=== PATIENT | female | born 1965 | race Caucasian/White ===

== ENCOUNTER 2020-04-07 20:26 | Emergency (ER) | payer MEDICAID, OTHER, SELFPAY ==
[2020-04-07 20:30] VITALS: BP 189/95; PULSE 98; RESP 20; TEMP 36.7; O2SAT 98
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
--- NOTE | 2020-04-07 21:01 | PC.NURSE ---
CALL PLACED TO [facility] FOR REPORT AND TRANSFER
[2020-04-07 21:20] VITALS: BP 151/100; PULSE 95; O2SAT 99
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
== END 2020-04-07 21:53 | disposition short-term general hospital (02) ==
PROVIDERS: Emergency Provider Emergency Medicine
DX: T76.21XA Adult sexual abuse, suspected, initial encounter (principal); S21.012A Laceration without foreign body of left breast, initial encounter; Y04.0XXA Assault by unarmed brawl or fight, initial encounter
CPT/HCPCS: 99285

== ENCOUNTER 2020-04-07 22:29 | Emergency (ER) | payer MEDICAID, OTHER, SELFPAY ==
--- NOTE | ~2020-04-07 | CT_ITS ---
EXAMINATION: CT brain wo con DATE: 04/08/2020 00:00 INDICATION: Head injury TECHNIQUE: Computed tomography (CT) of the head was performed without intravenous contrast. The dose- length product was 605.33 mGy-cm. The mA was adjusted according to patient size. Iterative reconstruc tion technique was employed. COMPARISON: CT dated 11/23/2006 FINDINGS: No acute intracranial hemorrhage, infarction, mass or mass effect. No ventriculomegaly or m idline shift. Normal iverson-white differentiation. There are surgical changes of the maxillary sinuses anteriorly. There is mucoperiosteal reaction in the maxillary sinuses consistent with chronic sinusit is. There is complete opacification the right maxillary and to a lesser degree in the right ethmoid s inuses. IMPRESSION: 1. No acute intracranial abnormality. 2: Moderate sinusitis, likely chronic. Reviewed, dictated and finalized at location A. E DATA SPECIALIST
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
[2020-04-07 22:36] VITALS: BP 162/113; PULSE 84; RESP 18; TEMP 36.6; O2SAT 100
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
[2020-04-08] MEDS: ACETAMINOPHEN 500 MG TABLET 1000 MG PO (01:55)
[2020-04-08] MEDS: metroNIDAZOLE 250 MG TABLET 2000 MG PO (04:17)
[2020-04-08] MEDS: AZITHROMYCIN 250 MG TABLET 1000 MG PO (04:17)
[2020-04-08] MEDS: cefTRIAXone 250 MG VIAL IM (04:17)
[2020-04-08 04:49] VITALS: BP 162/90; PULSE 69; RESP 18; O2SAT 97
== END 2020-04-08 04:55 | disposition home or self-care (01) ==
PROVIDERS: Emergency Provider Emergency Medicine
DX: T74.21XA Adult sexual abuse, confirmed, initial encounter (principal); Y07.59 Other non-family member, perpetrator of maltreatment and neglect
CPT/HCPCS: 70450; 70486; 72125; 96372; 99285; A9270; J0696

== ENCOUNTER 2020-07-20 06:37 | Emergency (ER) | payer OTHER, SELFPAY ==
[2020-07-20 06:39] VITALS: BP 142/70; PULSE 70; RESP 16; TEMP 36.1; O2SAT 98
--- NOTE | 2020-07-20 06:50 | PC.NURSE ---
patient arrived at 620am unable to get registered, at 630 registered & MD called.
--- NOTE | 2020-07-20 07:35 | ED.SKABFB ---
HPI - Skin/Abscess/Foreign Bdy General Chief complaint: Unspecified Stated complaint: rash Time Seen by Provider: 07/20/20 06:45 Source: patient Mode of arrival: ambulatory Limitations: no limitations History of Present Illness HPI narrative: Patient comes in stating she has been around someone who has scabies and is worried she has contracted them. Itching on abdomen, hands and arms has been severe, ongoing for the past few days. This has not been relieved by measures taken at home. She appears to have little rash with this. She also complains of sharp left shoulder pain for the past few days. This is most severe at the AC joint an appears to have started after some minor trauma. She comes in because of ongoing discomfort, not relieved by measures taken at home. Related Data Home Medications Medication Instructions Recorded Confirmed No Home Medications 04/07/20 07/20/20 Allergies Allergy/AdvReac Type Severity Reaction Status Date / Time ketorolac Allergy Mild Verified 11/18/13 00:12 Review of Systems Constitutional: Constitutional: Reports no additional constitutional complaints Eyes: Eyes: Reports no additional eye complaints ENT: Reports system reviewed and no additional complaints, except as documented Cardiovascular: Cardiovascular: Reports no additional cardiovascular complaints Respiratory: Respiratory: Reports no additional respiratory complaints Gastrointestinal: Gastrointestinal: Reports no additional gastrointestinal complaints Genitourinary: Genitourinary: Reports no additional female genitourinary complaints Musculoskeletal: Musculoskeletal: Reports no additional musculoskeletal complaints Integumentary/Breasts: Skin/Breast: Reports system reviewed and no additional complaints, except as docu Neurologic: Reports system reviewed and no additional complaints, except as documented Psychiatric: Psychiatric: Reports no additional psychiatric complaints Endocrine: Endocrine: Reports no additional endocrine complaints Hematologic/Lymphatic: Hematologic/Lymphatic: Reports no additional hematologic/lymphatic complaints Allergic/Immunologic: Allergic/Immunologic: Reports no additional allergic/immunologic complaints [facility] Past Medical History Medical History (Updated 07/21/20 @ 05:50 by Yvan Green MD) Migraine No significant medical problems Surgical History Surgical History History of cholecystectomy History of hysterectomy Family History Family History Mother Multiple myeloma Social History Social History Smoking status: Current every day smoker Tobacco type: cigarettes Additional smoking assessment comments: 1/2 Pack per day Gender identity (if verbalized by the patient): Female Exam Const: Orientation/consciousness: patient oriented x3 HENMT: Head: normal to inspection Ears: external ears normal and TM's normal bilaterally Mouth: Yes Normal oral and palatal mucosa present Throat: posterior oropharynx normal Eyes: Conjunctivae: conjunctivae normal Neck: Neck: normal visual inspection Chest: Chest palpation & inspection: normal inspection of the chest Resp: Effort & Inspection: normal respiratory effort Auscultation: clear to auscultation bilaterally Cardio: Rate: regular rate Rhythm: regular rhythm GI: Auscultation: normal bowel sounds : General: Yes no CVA tenderness Urinary Catheter: Urinary Catheter: patent and draining Back/Spine/Pelvis: Back: no CVA tenderness Skin: General skin exam: normal color Neuro: General: patient oriented x3 and moves all extremities Extrem: General: normal to inspection Psych: Appearance: grossly normal Mental Status: mental status grossly normal Thought content: Yes Normal thought content present Course Course Emergency Course: Patient was evaluated
== END 2020-07-20 07:51 | disposition home or self-care (01) ==
PROVIDERS: Emergency Provider Emergency Medicine
DX: M25.512 Pain in left shoulder (principal)
CPT/HCPCS: 99281; 99282

== ENCOUNTER 2020-08-13 23:06 | Emergency (ER) | payer OTHER, SELFPAY ==
--- NOTE | ~2020-08-13 | XR_ITS ---
EXAMINATION: [id number] INDICATION: Chest pain after fall TECHNIQUE: A frontal view of the chest and three views of the left ribs were obtained. COMPARISON: None. FINDINGS: The lungs are free of acute opacities. There is no pleural effusion or pneumothorax. The ca rdiomediastinal silhouette is normal. The visualized bones and soft tissues are unremarkable. No disp laced rib fracture is identified. Surgical clips in the right upper quadrant are likely from prior ch olecystectomy. IMPRESSION: 1. No acute cardiopulmonary abnormality or evidence of displaced rib fracture. Reviewed, dictated and finalized at location A.
[2020-08-13 23:29] VITALS: BP 178/103; PULSE 83; RESP 18; TEMP 36.4; O2SAT 99
[2020-08-14] MEDS: BACLOFEN 10 MG TABLET 20 MG PO (00:13)
[2020-08-14] MEDS: DEXAMETHASONE SOD PHOS INJ 4 MG/ML VIAL 10 MG IM (00:13)
--- NOTE | 2020-08-14 00:39 | ED.FALL ---
HPI - Fall General Chief Complaint: Fall Stated Complaint: Fall Time Seen by Provider: 08/13/20 23:45 Source: patient Mode of arrival: ambulatory Limitations: no limitations History of Present Illness HPI Narrative: Patient comes in complaining rib pain under her left breast. Pain there has been sharp, relatively severe, and ongoing since a fall about 4 hours ago when she fell and hit that part of her chest on a concrete retaining wall. She comes in because of pain. medications at home have not helped her to feel better. n modifying factors or other associated signs or symptoms. Onset (ago): hour(s) Fall from: standing Fall witnessed: yes, by bystander Place fall occurred: home Loss of consciousness: none Prolonged down time: no Symptoms prior to fall: other (tripped) Context: tripped/slipped Location of injury: chest Severity: moderate Severity scale (1-10): 7 Quality: sharp and stabbing Associated symptoms (after fall): denies Related Data Allergies Allergy/AdvReac Type Severity Reaction Status Date / Time ketorolac Allergy Mild Verified 11/18/13 00:12 Review of Systems Constitutional: Constitutional: Reports no additional constitutional complaints Eyes: Eyes: Reports no additional eye complaints ENT: Reports system reviewed and no additional complaints, except as documented Cardiovascular: Cardiovascular: Reports no additional cardiovascular complaints Respiratory: Respiratory: Reports no additional respiratory complaints Gastrointestinal: Gastrointestinal: Reports no additional gastrointestinal complaints Genitourinary: Genitourinary: Reports no additional female genitourinary complaints Musculoskeletal: Musculoskeletal: Reports no additional musculoskeletal complaints Integumentary/Breasts: Skin/Breast: Reports system reviewed and no additional complaints, except as docu Neurologic: Reports system reviewed and no additional complaints, except as documented Psychiatric: Psychiatric: Reports no additional psychiatric complaints Endocrine: Endocrine: Reports no additional endocrine complaints Hematologic/Lymphatic: Hematologic/Lymphatic: Reports no additional hematologic/lymphatic complaints Allergic/Immunologic: Allergic/Immunologic: Reports no additional allergic/immunologic complaints [facility] Past Medical History Medical History Migraine No significant medical problems Surgical History Surgical History History of cholecystectomy History of hysterectomy Family History Family History Mother Multiple myeloma Social History Social History Smoking status: Current every day smoker Tobacco type: cigarettes Additional smoking assessment comments: 1/2 Pack per day Gender identity (if verbalized by the patient): Female Exam Const: General: healthy appearing and no acute distress Orientation/consciousness: patient oriented x3 HENMT: Head: normal to inspection Ears: external ears normal and TM's normal bilaterally Face and sinus: normal facial exam Mouth: Yes Normal oral and palatal mucosa present Throat: posterior oropharynx normal Eyes: Conjunctivae: conjunctivae normal Neck: Neck: normal visual inspection and no lymphadenopathy Chest: Chest palpation & inspection: normal inspection of the chest Resp: Effort & Inspection: normal respiratory effort Auscultation: clear to auscultation bilaterally Cardio: Rate: regular rate Rhythm: regular rhythm GI: Auscultation: normal bowel sounds : General: Yes no CVA tenderness Skin: General skin exam: normal color Neuro: General: patient oriented x3 and moves all extremities Extrem: General: normal to inspection Psych: Appearance: grossly normal Mental Status: mental status grossly normal Thought content: Yes Normal thought co
[2020-08-14] MEDS: HYDROcodone/acetaminophen (*CRX) 5-325 MG TABLET 1 TAB PO (00:46)
[2020-08-14 00:47] VITALS: BP 155/97; PULSE 80; RESP 18; O2SAT 97
== END 2020-08-14 00:51 | disposition home or self-care (01) ==
PROVIDERS: Emergency Provider Emergency Medicine
DX: R07.9 Chest pain, unspecified (principal); W19.XXXA Unspecified fall, initial encounter
CPT/HCPCS: 71101; 96372; 99283; A9270; J1100

== ENCOUNTER 2020-10-04 08:04 | Emergency (ER) | payer OTHER, SELFPAY ==
[2020-10-04 08:10] VITALS: BP 185/114; PULSE 81; RESP 10; TEMP 36.7; O2SAT 70
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
[2020-10-04] MEDS: NALOXONE HCL INJ 2 MG/2 ML AMP NASAL (08:18)
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
--- NOTE | 2020-10-04 08:23 | ED.WOUNDLAC ---
HPI - Wound/Laceration General Chief Complaint: Wound/Laceration Stated Complaint: cut knee Source: patient and RN notes reviewed Mode of arrival: wheelchair Limitations: no limitations History of Present Illness Onset (ago): minute(s) (10) Extremity Location: Right: knee Place: outdoors Patient tetanus UTD: Yes Context: accidental Associated symptoms: none Related Data Allergies Allergy/AdvReac Type Severity Reaction Status Date / Time ketorolac Allergy Mild Verified 11/18/13 00:12 Review of Systems Review of Systems: All systems reviewed & are unremarkable except as noted in HPI and below PMFSH Past Medical History Medical History Migraine No significant medical problems Surgical History Surgical History History of cholecystectomy History of hysterectomy Family History Family History Mother Multiple myeloma Social History Social History Smoking status: Current every day smoker Tobacco type: cigarettes Additional smoking assessment comments: 1/2 Pack per day Gender identity (if verbalized by the patient): Female Exam Const: General: healthy appearing and no acute distress Nutritional Appearance: well nourished Orientation/consciousness: patient oriented x3 (Initially patient appeared lethargic) Limitations: altered mental status HENMT: Head: normal to inspection Ears: external ears normal Mouth: Yes moist mucous membranes Eyes: Conjunctivae: conjunctivae normal Pupils: Equal, round and reactive pupils present EOM: EOMs intact bilaterally Neck: Neck: normal visual inspection Resp: Effort & Inspection: normal respiratory effort Auscultation: clear to auscultation bilaterally Cardio: Rate: regular rate Rhythm: regular rhythm GI: GI Palp: Yes Soft to palpation and No Tenderness to palpation present (GI) Auscultation: normal bowel sounds Back/Spine/Pelvis: Cervical Spine: cervical ROM normal Thoracic/Lumbar Spine: thoraco-lumbar ROM normal Skin: General skin exam: normal color Rashes: no rashes Wounds: wounds noted laceration right anterior knee size (3.5 cm) Neuro: General: patient oriented x3, moves all extremities, no meningeal signs and no focal motor deficits Speech: normal speech Gait exam (Neuro): Normal gait present Extrem: General: normal to inspection and no clubbing, cyanosis or edema Psych: Appearance: grossly normal and well kempt Mental Status: mental status grossly normal Affect: normal affect and Anxious affect present Attitude: cooperative Thought content: Yes Normal thought content present Course Course Emergency Course: patient initially appeared lethargic snoring respirations. She was given 2 mg of Narcan intranasally. and a deep sternal rub by the nurse. she then seemed to wake up without difficulty was alert interactive answering questions appropriately. patient strongly encouraged at discharge to follow-up with her primary care physician for treatment of her hypertension. Vital Signs Vital signs: Vital Signs Temperature 36.7 C 10/04/20 08:10 Pulse Rate 81 10/04/20 08:10 Respiratory Rate 10 L 10/04/20 08:10 Blood Pressure 185/114 H 10/04/20 08:10 Pulse Oximetry 70 L 10/04/20 08:10 Temperature 36.7 C 10/04/20 08:10 Pulse Rate 68 10/04/20 09:27 Respiratory Rate 18 10/04/20 09:27 Blood Pressure 179/98 H 10/04/20 09:27 Pulse Oximetry 99 10/04/20 09:27 Procedures Laceration Laceration 1: Date: 10/04/20 Site: lower extremity Side (If applicable): right (knee) Size (cm): 3.5 Description: linear Local Anesthetic: lidocaine 1% and with epi Amount of anesthesia used (mL): 7 Pre-repair: wound explored and irrigated ====== Skin Level ====== Skin laye
[2020-10-04 08:52] VITALS: BP 186/109; PULSE 88; RESP 18; O2SAT 95
[2020-10-04] MEDS: NEOMYCIN/POLYMYXIN/BACITRACIN OINTMENT PACKET 1 PACKET (08:55)
[2020-10-04] MEDS: cloNIDine HCL 0.2 MG TABLET PO (09:00)
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
[2020-10-04 09:27] VITALS: BP 179/98; PULSE 68; RESP 18; O2SAT 99
== END 2020-10-04 09:29 | disposition home or self-care (01) ==
PROVIDERS: Emergency Provider Emergency Medicine
DX: S81.011A Laceration without foreign body, right knee, initial encounter (principal); W45.8XXA Other foreign body or object entering through skin, initial encounter
CPT/HCPCS: 12002; 99283; A9270; J2310

== ENCOUNTER 2020-11-07 08:29 | Emergency (ER) | payer OTHER, SELFPAY ==
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
[2020-11-07 08:35] VITALS: BP 182/116; PULSE 98; RESP 15; TEMP 37; O2SAT 96
--- NOTE | 2020-11-07 08:53 | ECG_ITS ---
Measurements Intervals [place] Rate: 84 P: 60 CA: 141 QRS: 9 QRSD: 91 T: 65 QT: 390 QTc: 462 Interpretive Statements SINUS RHYTHM BASELINE ARTIFACT- I, III, AVL NORMAL ECG Electronically Signed On 11-07-2020 9:47:45 CDT by Norris Hunt D.O.
[2020-11-07] MEDS: DEXAMETHASONE 4 MG TABLET 12 MG PO (09:14)
[2020-11-07 09:52] VITALS: BP 186/114
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
[2020-11-07 10:30] VITALS: RESP 16
== END 2020-11-07 10:30 | disposition home or self-care (01) ==
PROVIDERS: Emergency Provider Emergency Medicine
DX: R07.89 Other chest pain (principal)
CPT/HCPCS: 71046; 93005; 99283; J8540

== ENCOUNTER 2020-12-26 07:11 | Emergency (ER) | payer OTHER, SELFPAY ==
[2020-12-26 07:41] VITALS: BP 175/106; PULSE 86; RESP 14; TEMP 37; O2SAT 99
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
[2020-12-26] MEDS: cefTRIAXone 1 GM VIAL IM (07:54)
[2020-12-26] MEDS: AZITHROMYCIN 250 MG TABLET 1000 MG PO (07:54)
[2020-12-26 08:24] LABS: HIV 1 P24 AG Negative (Negative); HIV 1/2 AB Negative (Negative)
[2020-12-26 08:30] VITALS: BP 176/106; PULSE 85; RESP 16; O2SAT 98
[2020-12-29 15:43] LABS: RPR Screen Non-Reactive (Non-Reactive)
== END 2020-12-26 08:30 | disposition home or self-care (01) ==
PROVIDERS: Emergency Provider Emergency Medicine
DX: Z20.2 Contact with and (suspected) exposure to infections with a predominantly sexual mode of transmission (principal)
CPT/HCPCS: 36415; 86592; 86703; 87491; 87591; 96372; 99283; 99284; A9270; J0696

== ENCOUNTER 2021-09-03 07:34 | Emergency (ER) | payer OTHER, SELFPAY ==
--- NOTE | ~2021-09-03 | CT_ITS ---
EXAMINATION: CT abdomen pelvis wo con DATE: 09/03/2021 08:50 INDICATION: Left lower abdominal and back pain. TECHNIQUE: Computed tomography (CT) of the abdomen and pelvis was performed without intravenous contr ast. Automated exposure control and iterative reconstruction technique were employed. The dose-length product was 193.98 mGy-cm. COMPARISON: None FINDINGS: Lung bases are clear. Heart size is normal. No pericardial or pleural effusion. Cholecystectomy clips at the gallbladder fossa. Liver, spleen, pancreas, bilateral adrenal glands and kidneys are normal. A few phleboliths in the pelvis. No urolithiasis. Bowels including the appendix are normal. Decompres sed bladder is unremarkable. The uterus is not identified and has likely been surgically resected. No free intraperitoneal gas or fluid. No pathologically enlarged abdominal or pelvic lymphadenopathy . Chronic mild L1 compression fracture. Moderate lower thoracic and mild lumbar spondylosis. No acute osseous abnormality. IMPRESSION: 1. No acute intra-abdominal/pelvic process. Reviewed, dictated and finalized at location B.
[2021-09-03 07:40] VITALS: BP 154/98; PULSE 96; RESP 14; TEMP 36.7; O2SAT 100
--- NOTE | 2021-09-03 08:24 | ED.ABDPAIN ---
HPI - Abdominal Pain General Chief Complaint: Urogenital-Female Stated Complaint: Low back pain to L side cramps heavy bleeding Time Seen by Provider: 09/03/21 07:42 Source: patient and RN notes reviewed Mode of arrival: ambulatory Limitations: no limitations History of Present Illness MD elicited complaint: flank pain (crampy left CVA to groin pain with hematuria x this am. no rectal bleeding. pt has chronic LBP) Pertinent past history: none Onset (ago): hour(s) (2) Pain Consistency: constant Location: L flank Severity: mild Pain scale (0-10): 4 Quality: cramping, aching and dull Migration to: no migration Exacerbating factors: nothing Relieving factors: nothing Associated symptoms: hematuria Related Data Home Medications Medication Instructions Recorded Confirmed No Home Medications 09/03/21 09/03/21 Allergies Allergy/AdvReac Type Severity Reaction Status Date / Time ketorolac Allergy Mild Rash Verified 09/03/21 08:06 Review of Systems Review of Systems: All systems reviewed & are unremarkable except as noted in HPI and below PMFSH Past Medical History Medical History Low back pain Migraine No significant medical problems Surgical History Surgical History History of cholecystectomy History of hysterectomy Family History Family History Mother Multiple myeloma Social History Social History Smoking status: Current every day smoker Tobacco type: cigarettes Additional smoking assessment comments: 1/2 Pack per day Gender identity (if verbalized by the patient): Female Exam Const: General: healthy appearing and no acute distress Nutritional Appearance: obese Orientation/consciousness: patient oriented x3 Limitations: no limitations HENMT: Head: normal to inspection Ears: external ears normal and TM's normal bilaterally General nose exam: Normal external nose present and Normal nares present Face and sinus: normal facial exam and sinuses nontender Mouth: Yes Normal oral and palatal mucosa present and Yes moist mucous membranes Throat: posterior oropharynx normal Eyes: Conjunctivae: conjunctivae normal Pupils: Equal, round and reactive pupils present EOM: EOMs intact bilaterally Neck: Neck: normal visual inspection and no lymphadenopathy Chest: Chest palpation & inspection: normal inspection of the chest Resp: Effort & Inspection: normal respiratory effort Auscultation: clear to auscultation bilaterally Cardio: Rate: regular rate Rhythm: regular rhythm GI: GI Palp: Yes Soft to palpation and No Tenderness to palpation present (GI) Auscultation: normal bowel sounds Other: minimally tender LLQ : General: Yes CVA tenderness (left mild) on the left Back/Spine/Pelvis: Back: CVA tenderness Skin: General skin exam: normal color Rashes: no rashes Neuro: General: patient oriented x3, moves all extremities, no meningeal signs, no focal motor deficits and CN's II-XI intact bilaterally Speech: normal speech Gait exam (Neuro): Normal gait present Extrem: General: normal to inspection and no pedal edema Other: no calf tenderness Psych: Mental Status: mental status grossly normal Affect: normal affect Attitude: cooperative Course Course Emergency Course: Pt was stable in the ED. less painful. no acute bleeding. Reevaluation(s) Reevaluation #1: VSS Date: 09/03/21 Time: 08:37 Vital Signs Vital signs: Vital Signs Temperature 36.7 C 09/03/21 07:40 Pulse Rate 96 09/03/21 07:40 Respiratory Rate 14 09/03/21 07:40 Blood Pressure 154/98 H 09/03/21 07:40 Pulse Oximetry 100 09/03/21 07:40 Oxygen Delivery Room Air 09/03/21 07:40 Temperature 36.7 C 09/03/21 07:40 Pulse Rate 71 09/03/21 09:51 Respiratory Rate 18 09/03/21
[2021-09-03] MEDS: SODIUM CHLORIDE 0.9% IV 500 ML 999 ML IV CONT (08:33)
[2021-09-03] MEDS: ONDANSETRON INJ 4 MG/2 ML VIAL IV PUSH (08:34)
[2021-09-03 08:35] LABS: Appearance Urine Cloudy (Clear); Bilirubin Urine 1+ (Negative); Blood Urine 3+ (Negative); Glucose Urine UA Trace (Negative); Ketones Urine Trace (Negative); Leukocyte Esterase Ur Trace (Negative); Nitrate Urine Positive (Negative); Protein Urine 2+ (Negative); Specific Grav Ur >= 1.030 (1.010-1.020); pH Urine 6.5 (5.0-8.0)
[2021-09-03 08:35] LABS: Basophils Absolute Auto 0.08 K/mm3 (0.00-0.10); Basophils Percent Auto 0.8 % (0.0-1.0); Eosinophils Absolute Auto 0.09 K/mm3 (0.02-0.50); Eosinophils Percent Auto 0.9 % (1.0-6.0); Hematocrit 39.5 % (35.0-49.0); Hemoglobin 12.4 g/dL (12.0-15.0); Immature Granulocyte Absolute 0.03 K/mm3 (0.00-0.00); Immature Granulocyte Percent A 0.3 % (0.0-0.0); Lymphocytes Absolute Auto 2.19 K/mm3 (1.10-4.50); Mean Corpuscular HGB Conc 31.4 g/dL (32.0-36.0); Mean Corpuscular Hemoglobin 29.9 pg (27.0-31.0); Mean Corpuscular Volume 95.2 fL (78.0-102.0); Mean Platelet Volume 9.7 fl (9.2-11.8); Monocytes Absolute Auto 0.99 K/mm3 (0.10-0.90); Neutrophils Absolute Auto 6.6 K/mm3 (1.7-7.2); Platelet Count Result 292 K/mm3 (150-420); Red Blood Count 4.15 M/mm3 (4.20-5.40); Red Cell Distribution Width 12.8 % (11.6-14.4); White Blood Count 9.9 K/mm3 (4.8-10.8)
[2021-09-03] MEDS: MORPHINE SULFATE (*CRX) 2 MG/ML INJ IV PUSH (08:35)
[2021-09-03 08:42] LABS: Add Urine Microscopic? YES; Bacteria Urine 2+ /hpf; Color Urine Dark Brown (Yellow); RBC Urine >75 /hpf (0-2); Squamous Epithelial Cell Urine Few /hpf (Few)
[2021-09-03 08:49] LABS: Partial Thromboplastin Time 31.9 SEC (23.90-30.70); Prothrombin Time 10.7 Seconds (9.50-12.10)
[2021-09-03 08:51] LABS: Alanine Aminotransferase 30 U/L (14-59); Albumin Level 3.4 g/dL (3.4-5.0); Alkaline Phosphatase 98 U/L (46-116); Anion Gap 6 mmol/L (8-16); Aspartate Amino Transferase 22 U/L (15-37); Bilirubin,Total 0.5 mg/dL (0.00-1.00); Blood Urea Nitrogen 24 mg/dL (7-18); Calcium 8.7 mg/dL (8.5-10.1); Carbon Dioxide 30 mmol/L (21-32); Chloride 103 mmol/L (98-108); Estimated CRCL calculation 45 ml/min; Estimated Glomerular Filt Rate 51; Glucose 112 mg/dL (70-99); Osmolality Calculated 293 mOsm/kg (285-295); Potassium 3.6 mmol/L (3.5-5.1); Sodium 139 mmol/L (136-145); Total Protein 7.3 g/dL (6.4-8.2)
[2021-09-03 09:51] VITALS: BP 139/84; PULSE 71; RESP 18; O2SAT 97
[2021-09-03] MEDS: IBUPROFEN 400 MG TABLET 800 MG PO (10:51)
[2021-09-03 11:06] VITALS: BP 135/62; PULSE 65; RESP 16; TEMP 36.3; O2SAT 99
== END 2021-09-03 11:09 | disposition home or self-care (01) ==
PROVIDERS: Emergency Provider Emergency Medicine
DX: N39.0 Urinary tract infection, site not specified (principal); F17.210 Nicotine dependence, cigarettes, uncomplicated; Z90.710 Acquired absence of both cervix and uterus
CPT/HCPCS: 74176; 80053; 81001; 85025; 85610; 85730; 96361; 96365; 96375; 99284; A9270; J0696; J1885; J2270; J2405; J7040

== ENCOUNTER 2022-04-30 20:43 | Emergency (ER) | payer OTHER, SELFPAY ==
--- NOTE | ~2022-04-30 | XR_ITS ---
EXAMINATION: XR chest 1V portable DATE: 04/30/2022 22:05 INDICATION: Cough. TECHNIQUE: A single frontal view of the chest was obtained. COMPARISON: Chest 2 views 11/07/2020 FINDINGS: The chest demonstrates clear lungs without pneumonia, pleural effusion, or pneumothorax. Th e heart size is normal. Surgical clips in the right upper quadrant are likely from cholecystectomy. IMPRESSION: 1. No acute cardiopulmonary disease. Reviewed, dictated and finalized at location A. PUBLIC RELATIONS
--- NOTE | ~2022-04-30 | CT_ITS ---
EXAMINATION: CT brain wo con DATE: 04/30/2022 22:07 INDICATION: Seizure. TECHNIQUE: Computed tomography (CT) of the head was performed without intravenous contrast. The mA wa s adjusted according to patient size. Iterative reconstruction technique was employed. The dose-lengt h product was 605.33 mGy-cm. COMPARISON: Head CT 04/07/2020 FINDINGS: There is no intracranial hemorrhage, acute infarction, or abnormal intracranial mass lesion . The ventricles are normal in size. The orbits are normal. There is mucosal thickening in the parana nate sinuses. The mastoid air cells are normal. IMPRESSION: 1. Normal brain. Reviewed, dictated and finalized at location A. T DEVELOPER IMPRESSION: 1. Normal brain.
[2022-04-30 20:45] VITALS: BP 164/104; PULSE 79; PULSE 82; RESP 15; TEMP 36.8; O2SAT 100
[2022-04-30 20:57] VITALS: PULSE 83; RESP 20
[2022-04-30 21:11] VITALS: PULSE 84; RESP 18
[2022-04-30 21:15] VITALS: PULSE 87; RESP 25
[2022-04-30 21:16] VITALS: BP 148/92; PULSE 85; RESP 23
--- NOTE | 2022-04-30 21:53 | ECG_ITS ---
Measurements Intervals [place] Rate: 73 P: 28 SC: 141 QRS: -9 QRSD: 89 T: 22 QT: 386 QTc: 428 Interpretive Statements SINUS RHYTHM ATRIAL PREMATURE COMPLEX BORDERLINE ECG COMPARED TO ECG 11/07/2020 09:18:23 NO SIGNIFICANT CHANGES Electronically Signed On 05-01-2022 7:42:35 LAUNDRY EQUIPMENT OPERATOR by Norris Hunt D.O.
[2022-04-30 22:33] LABS: Basophils Absolute Auto 0.1 K/mm3 (0.0-0.1); Basophils Percent Auto 1.3 % (0.2-1.2); Eosinophils Absolute Auto 0.1 K/mm3 (0-0.3); Eosinophils Percent Auto 1.6 % (0-4.4); Hematocrit 44.4 % (37.0-47.0); Hemoglobin 14.6 g/dL (12.0-15.0); Immature Granulocyte Absolute 0.05 K/mm3 (0.00-0.031); Immature Granulocyte Percent A 0.6 % (0-0.5); Lymphocytes Absolute Auto 2.68 K/mm3 (0.9-3.2); Lymphocytes Percent Auto 31.1 % (18.3-44.2); Mean Corpuscular HGB Conc 32.9 g/dl (32-36); Mean Corpuscular Volume 91.4 fl (80-100); Monocytes Absolute Auto 0.6 K/mm3 (0.1-0.6); Neutrophils Absolute Auto 5.1 K/mm3 (1.3-6.7); Neutrophils Percent Auto 58.4 % (45.5-73.1); Platelet Count Result 344 k/mm3 (150-375); Red Blood Count 4.86 M/mm3 (4.2-5.4); Red Cell Distribution Width 13.4 % (11.5-14.5); White Blood Count 8.6 K/mm3 (4.5-10.0)
--- NOTE | 2022-04-30 22:33 | ED.GENADULT ---
HPI - General Adult General Chief complaint: Seizure Stated complaint: seizure? Time Seen by Provider: 04/30/22 21:41 History of Present Illness HPI narrative: Patient 57-year-old female who presents the emergency department with chief complaint of seizure-like activity. Patient reports that she was in care home and has been there for approximately 2 weeks patient reports that throughout that period she has not been taking her antihypertensive medications and reports that she had an episode that the staff described as seizure-like activity they report the episode lasted approximately 10 minutes the time EMS arrived the patient was initially postictal but then returned to baseline neurological status upon arrival to the emergency department patient states that she feels really good and currently has no complaints. Related Data Home Medications Medication Instructions Recorded Confirmed metoprolol tartrate 04/30/22 Allergies Allergy/AdvReac Type Severity Reaction Status Date / Time ketorolac Allergy Mild Rash Verified 04/30/22 20:48 Review of Systems Review of Systems: A 10 system review of systems was completed on the patient and is negative except for what is stated in the HPI. Nursing and ancillary documentation was reviewed. [facility] Past Medical History Medical History Low back pain Migraine No significant medical problems Surgical History Surgical History History of cholecystectomy History of hysterectomy Family History Family History Mother Multiple myeloma Social History Social History Smoking status: Current every day smoker Tobacco type: cigarettes Additional smoking assessment comments: 1/2 Pack per day Gender identity (if verbalized by the patient): Female Comments Reported history of stroke Exam Narrative: GENERAL: Well-appearing, well-nourished, and in no acute distress. HEAD: Normocephalic, atraumatic. EYES: PERRLA and EOMI. ENT: Nares clear, no rhinorrhea or epistaxis. Mucous membranes moist. NECK: Supple. CHEST: Clear to auscultation. No respiratory distress. HEART: Regular rate and rhythm. No murmur heard. Normal peripheral pulses. ABDOMEN: Soft, nontender, nondistended, normal active bowel sounds. EXTREMITIES: Normal range of motion. No edema. SKIN: Warm, dry, no rash. NEURO: No focal deficits. Alert and oriented x3. PSYCH: Normal mood and affect. Course Vital Signs Vital signs: Vital Signs Temperature 36.8 C 04/30/22 20:45 Pulse Rate 82 04/30/22 20:45 Respiratory Rate 15 04/30/22 20:45 Blood Pressure 164/104 H 04/30/22 20:45 Pulse Oximetry 100 04/30/22 20:45 Oxygen Delivery Room Air 04/30/22 20:45 Temperature 36.8 C 04/30/22 20:45 Pulse Rate 85 04/30/22 21:16 Respiratory Rate 23 H 04/30/22 21:16 Blood Pressure 148/92 H 04/30/22 21:16 Pulse Oximetry 100 04/30/22 20:45 Oxygen Delivery Room Air 04/30/22 20:45 Medical Decision Making MDM Narrative Medical decision making narrative: EKG is sinus rhythm rate of [address] elevation or ST depression Patient has prior history of both hypertension and also CVA. Due to the seizure-like activity and the patient being currently back to neurological baseline patient would not be a thrombolytic candidate. CT head was obtained which was interpreted by the radiologist and reviewed by me that showed no evidence of acute intracranial hemorrhage. Chest x-ray showed no focal infiltrate Laboratory studies were obtained these are currently pending the patient decided that at this time she wishes to leave the emergency department to be with her family and will be signing out AGAINST MEDICAL ADVICE. The patient was informed of the risk of possib
--- NOTE | 2022-04-30 22:38 | PC.NURSE ---
Patient requesting to leave AMA. MD Norris noted and patient alert and oriented x4. Patient understands risks of leaving prior to medical treatment. AMA form signed at this time. patient ambulatory with steady gait.
[2022-04-30 23:05] LABS: Partial Thromboplastin Time 27.5 SECONDS (22.3-36.8); Prothrombin Time 12.5 Seconds (11.1-14.7)
[2022-04-30 23:07] LABS: Lactic Acid Reflex 1.2 mmol/L (0.7-2.0)
[2022-04-30 23:09] LABS: Alanine Aminotransferase 17 U/L (6-35); Albumin Level 3.5 g/dL (3.5-5.1); Alkaline Phosphatase 74 U/L (38-126); Anion Gap 1 mmol/L (8-16); Aspartate Amino Transferase 22 U/L (14-36); Bilirubin,Total 0.3 mg/dL (0.2-1.3); Blood Urea Nitrogen 22 mg/dL (7-17); Calcium 8.7 mg/dL (8.4-10.2); Carbon Dioxide 31 mmol/L (22-30); Chloride 108 mmol/L (98-107); Estimated CRCL calculation 61 ml/min; Estimated Glomerular Filt Rate > 60; Glucose 103 mg/dL (65-110); Magnesium 2.1 mg/dL (1.6-2.3); Potassium 3.9 mmol/L (3.4-5.0); Sodium 140 mmol/L (137-145)
[2022-04-30 23:10] LABS: Appearance Urine Cloudy (Clear); Bilirubin Urine Negative (Negative); Blood Urine Negative (Negative); Color Urine Yellow (Yellow); Glucose Urine UA Negative (Negative); Ketones Urine Negative (Negative); Leukocyte Esterase Ur Negative LEU/UL (Negative); Nitrate Urine Positive (Negative); Protein Urine Negative (Negative); Specific Grav Ur >= 1.030 (1.001-1.035); Urobilinogen Urine 0.2 mg/dL (<2.0); pH Urine 5.5 (5.0-9.0)
[2022-04-30 23:15] LABS: Bacteria Urine 1+ /hpf; Mucus Urine Rare /lpf; RBC Urine 0-2 /hpf (0-2); Squamous Epithelial Cell Urine Many /hpf (Few); WBC Urine 0-3 /hpf
[2022-04-30 23:18] LABS: Add Urine Microscopic? YES
[2022-04-30 23:20] LABS: Troponin I < 0.012 ng/mL (0.000-0.034)
== END 2022-04-30 22:41 | disposition left against medical advice (07) ==
PROVIDERS: Emergency Provider Emergency Medicine
DX: R56.9 Unspecified convulsions (principal); I10 Essential (primary) hypertension; T46.5X6A Underdosing of other antihypertensive drugs, initial encounter; Z90.710 Acquired absence of both cervix and uterus; Z86.73 Personal history of transient ischemic attack (TIA), and cerebral infarction without residual deficits; I49.1 Atrial premature depolarization
CPT/HCPCS: 36415; 70450; 71045; 80053; 81001; 83605; 83735; 84484; 85025; 85610; 85730; 93005; 99284

== ENCOUNTER 2022-05-03 22:14 | Emergency (ER) | payer OTHER, SELFPAY ==
--- NOTE | ~2022-05-03 | CT_ITS ---
Clinical Indication: Pain CT Scan of the Chest, Abdomen, and Pelvis without Contrast: Technique: Contiguous sections were acquired throughout the chest, abdomen, and pelvis without IV or oral contrast administration. Dose reduction technique was used on this scan by utilizing automated e xposure control and iterative reconstruction technique. The dose-length product (DLP) was 404.29 mGy- cm. COMPARISON: Abdominal pelvic CT dated 09/03/2021 Findings: There is no evidence of any significant mediastinal, hilar or axillary lymphadenopathy. The mediastin al soft tissues appear normal. There is no evidence of pleural or pericardial effusion. The lungs are clear, aside from minimal atelectatic change and/or scarring. The liver, spleen, pancreas, adrenals and kidneys are within normal limits. Cholecystectomy clips pre sent. No evidence of aortic aneurysm. No lymphadenopathy. No bowel obstruction or bowel wall thickening. There is no evidence to suggest acute appendicitis. Urinary bladder is unremarkable. No pelvic mass evident. No ascites. Stable minimal compression defor mity of L1. Impression: No acute abnormalities seen. Mild compression deformity of L1, unchanged. Reviewed, dictated and finalized at location . NG QUALITY COORDINATOR Impression: No acute abnormalities seen. Mild compression deformity of L1, unchanged.
[2022-05-03 22:22] VITALS: BP 137/104; PULSE 90; RESP 18; TEMP 37; O2SAT 95
--- NOTE | 2022-05-03 22:57 | ED.GENADULT ---
HPI - General Adult General Chief complaint: Back Pain/Injury Stated complaint: Back/Chest Wall Pain Source: patient Mode of arrival: ambulatory Limitations: no limitations History of Present Illness HPI narrative: 57-year-old white female complains anterior chest pain and bruising started an hour ago. She was seen in [facility] 04/30/2019 for seizure activity after being in [place] [facility] for [address] of her head was negative. Patient left the ED AMA. She said she is fine until an hour ago. This when she started having anterior chest tenderness and pain radiating around to her back. Denies any other symptoms. Related Data Home Medications Medication Instructions Recorded Confirmed metoprolol tartrate 04/30/22 Allergies Allergy/AdvReac Type Severity Reaction Status Date / Time ketorolac Allergy Mild Rash Verified 04/30/22 20:48 Review of Systems Constitutional: Constitutional: Reports as per HPI and Reports no additional constitutional complaints Eyes: Eyes: Reports no additional eye complaints ENT: Reports system reviewed and no additional complaints, except as documented Cardiovascular: Cardiovascular: Reports as per HPI, Reports no additional cardiovascular complaints and Reports chest pain Respiratory: Respiratory: Reports no additional respiratory complaints Gastrointestinal: Gastrointestinal: Reports as per HPI, Reports no additional gastrointestinal complaints, Denies constipation, Denies diarrhea, Denies nausea and Denies vomiting Genitourinary: Genitourinary: Reports no additional female genitourinary complaints and Reports urinary incontinence Musculoskeletal: Musculoskeletal: Reports no additional musculoskeletal complaints and Reports as per HPI Integumentary/Breasts: Skin/Breast: Reports system reviewed and no additional complaints, except as docu Neurologic: Reports system reviewed and no additional complaints, except as documented and Reports as per HPI PMFSH Past Medical History Medical History Low back pain Migraine No significant medical problems Surgical History Surgical History History of cholecystectomy History of hysterectomy Family History Family History Mother Multiple myeloma Social History Social History Smoking status: Current every day smoker Tobacco type: cigarettes Additional smoking assessment comments: 1/2 Pack per day Gender identity (if verbalized by the patient): Female Exam Narrative: Patient is a white female alert and oriented x4 but twice during the interview patient slowly closed her eyes and seemed to fade away for 2nd and then would open her eyes and be alert again. Looks like she is falling asleep. Eyes conjunctiva pink sclera nonicteric extraocular movements were intact. Head is normocephalic atraumatic. Oropharynx is clear with moist mucous membranes. Neck is supple no lymphadenopathy. Back shows some tenderness upper middle and lower back scattered para spinally. Chest wall is tender left chest she has a bruise hematoma over left breast medially. Crepitation or back or chest wall. Palpation reproduces her chest pain. Abdomen soft and nontender no hepatosplenomegaly or masses no CVA tenderness. Extremities no cyanosis clubbing or edema tenderness or loss of function. She has full range of motion of her extremities. Gait is normal neurological she is alert and oriented motor and sensory grossly intact. Course Vital Signs Vital signs: Vital Signs Temperature 37.0 C 05/03/22 22:22 Pulse Rate 90 05/03/22 22:22 Respiratory Rate 18 05/03/22 22:22 Blood Pressure 137/104 H 05/03/22 22:22 Pulse Oximetry 95 05/03/22 22:22 Oxygen Delivery Room Air 05/03/22 22:22 Vincenta
--- NOTE | 2022-05-03 23:01 | ECG_ITS ---
Measurements Intervals [place] Rate: 81 P: 26 NC: 130 QRS: -13 QRSD: 86 T: -5 QT: 369 QTc: 429 Interpretive Statements SINUS RHYTHM VOLTAGE CRITERIA FOR LVH BORDERLINE T WAVE ABNORMALITY- ANTEROLAT/INF LEADS BASELINE ARTIFACT- I, II, III, AVR, AVL, AVF, V1-V2, V4-V6 BORDERLINE ECG COMPARED TO ECG 04/30/2022 22:16:32 NO SIGNIFICANT CHANGES Electronically Signed On 05-04-2022 7:55:03 [employer] by Norris Hunt D.O.
[2022-05-03 23:08] LABS: Add Urine Microscopic? YES; Bilirubin Urine Negative (Negative); Blood Urine 1+ (Negative); Color Urine Light Yellow (Yellow); Glucose Urine UA 1+ (Negative); Ketones Urine Trace (Negative); Leukocyte Esterase Ur Negative LEU/UL (Negative); Nitrate Urine Positive (Negative); Protein Urine 1+ (Negative); Specific Grav Ur >= 1.030 (1.010-1.020); Urobilinogen Urine 0.2 mg/dL (0.2-1.0); pH Urine 5.5 (5.0-8.0)
[2022-05-03 23:13] LABS: Amphetamine Screen Urine Positive (Negative); Barbiturate Screen Urine Negative (Negative); Benzodiazepines Screen Urine Negative (Negative); Cannabinoid Screen Urine Negative (Negative); Cocaine Screen Urine Negative (Negative); Methadone Screen Urine Negative (Negative); Opiate Screen Urine Negative (Negative); Phencyclidine Screen Urine Negative (Negative)
[2022-05-03 23:15] LABS: Amorphous Sediment Urine Moderate; Appearance Urine Cloudy (Clear); Bacteria Urine 4+ /hpf; Squamous Epithelial Cell Urine Many /hpf (Few)
[2022-05-03 23:35] VITALS: BP 136/88; PULSE 70; RESP 16; O2SAT 96
[2022-05-03 23:53] LABS: Basophils Absolute Auto 0.05 K/mm3 (0.00-0.10); Basophils Percent Auto 0.6 % (0.0-1.0); Eosinophils Absolute Auto 0.31 K/mm3 (0.02-0.50); Eosinophils Percent Auto 3.6 % (1.0-6.0); Hematocrit 36.8 % (35.0-49.0); Immature Granulocyte Absolute 0.04 K/mm3 (0.00-0.00); Immature Granulocyte Percent A 0.5 % (0.0-0.0); Lymphocytes Absolute Auto 2.02 K/mm3 (1.10-4.50); Lymphocytes Percent Auto 23.5 % (18.0-42.0); Mean Corpuscular HGB Conc 32.6 g/dL (32.0-36.0); Mean Corpuscular Hemoglobin 30.2 pg (27.0-31.0); Mean Corpuscular Volume 92.5 fL (78.0-102.0); Mean Platelet Volume 10.3 fl (9.2-11.8); Monocytes Absolute Auto 0.61 K/mm3 (0.10-0.90); Monocytes Percent Auto 7.1 % (2.0-11.0); Neutrophils Absolute Auto 5.6 K/mm3 (1.7-7.2); Neutrophils Percent Auto 64.7 % (50.0-70.0); Platelet Count Result 271 K/mm3 (150-420); Red Blood Count 3.98 M/mm3 (4.20-5.40); Red Cell Distribution Width 13.1 % (11.6-14.4); White Blood Count 8.6 K/mm3 (4.8-10.8)
[2022-05-04 00:08] LABS: Partial Thromboplastin Time 29.3 SEC (23.90-30.70); Prothrombin Time 10.9 Seconds (9.50-12.10)
[2022-05-04 00:15] LABS: Alanine Aminotransferase 16 U/L (14-59); Alkaline Phosphatase 73 U/L (46-116); Anion Gap 2 mmol/L (8-16); Aspartate Amino Transferase 21 U/L (15-37); Bilirubin,Total 0.3 mg/dL (0.00-1.00); Blood Urea Nitrogen 22 mg/dL (7-18); Calcium 8.1 mg/dL (8.5-10.1); Carbon Dioxide 36 mmol/L (21-32); Chloride 99 mmol/L (98-108); Estimated CRCL calculation 35 ml/min; Estimated Glomerular Filt Rate 45; Glucose 115 mg/dL (70-99); Lipase 13 U/L (16-77); NT Pro B Type Natriuretic Pept 252 pg/mL (0-125); Osmolality Calculated 288 mOsm/kg (285-295); Potassium 3.7 mmol/L (3.5-5.1); Sodium 137 mmol/L (136-145); Total Protein 6.6 g/dL (6.4-8.2); Troponin I 6.8 ng/L (0.00-60.4)
[2022-05-04 00:30] LABS: D Dimer 0.97 mg/L (0.19-0.50)
[2022-05-04 00:35] VITALS: BP 139/89; PULSE 89; RESP 20; O2SAT 98
[2022-05-04 00:39] LABS: Ethanol < 3 mg/dL (0-6)
[2022-05-04] MEDS: CEPHALEXIN 500 MG CAPSULE (01:02)
[2022-05-04 01:09] VITALS: BP 132/90; PULSE 82; RESP 16; TEMP 37; O2SAT 98
--- NOTE | 2022-05-12 08:00 | PC.NURSE ---
Addendum entered by Javier Varghese RN 05/12/22 08:03: rx for bactrim ds per dr garce. Original Note: rx for bactrim ds po bid for [address] [facility] on 05/08/22. pt is to stop taking cephalexin and to begin bactrim ds when picked up. certified letter sent. no answer with calls to [phone], and unable to leave message.
== END 2022-05-04 01:11 | disposition home or self-care (01) ==
PROVIDERS: Emergency Provider Emergency Medicine
DX: R07.89 Other chest pain (principal); S39.012A Strain of muscle, fascia and tendon of lower back, initial encounter; N39.0 Urinary tract infection, site not specified; F17.200 Nicotine dependence, unspecified, uncomplicated; X58.XXXA Exposure to other specified factors, initial encounter
CPT/HCPCS: 36415; 71250; 74176; 80053; 80307; 81001; 83690; 83880; 84484; 85025; 85380; 85610; 85730; 87077; 87086; 87088; 87186; 93005; 99284; A9270

== ENCOUNTER 2022-05-22 19:17 | Emergency (ER) | payer OTHER, SELFPAY ==
--- NOTE | ~2022-05-22 | XR_ITS ---
EXAMINATION: XR chest 2V DATE: 05/22/2022 20:27 INDICATION: Pedal edema. Assess for congestive heart failure. TECHNIQUE: PA and lateral views of the chest were obtained. COMPARISON: Chest radiograph dated 04/30/[address] dated 05/03/2022 FINDINGS: Mild linear discoid atelectasis/scarring at the lingula. No other airspace opacities, pulmonary edema , pleural effusion or pneumothorax. The cardiomediastinal silhouette is normal. Thoracic kyphosis wit h mild chronic wedging of a few mid thoracic and upper lumbar vertebral bodies. Moderate thoracic spo ndylosis. Cholecystectomy clips in the right upper quadrant. IMPRESSION: 1. Mild lingular discoid atelectasis/scarring. Reviewed, dictated and finalized at location [facility]
[2022-05-22 19:29] VITALS: BP 154/87; PULSE 95; RESP 18; TEMP 36.8; O2SAT 95
--- NOTE | 2022-05-22 20:12 | ECG_ITS ---
Measurements Intervals [place] Rate: 73 P: 21 ME: 133 QRS: -13 QRSD: 89 T: -3 QT: 398 QTc: 440 Interpretive Statements SINUS RHYTHM MODERATE VOLTAGE CRITERIA FOR LVH, CONSIDER NORMAL VARIANT [MEETS CRITERIA IN ONE OF: R(aVL), S(V1), R(V5), R(V5/V6)+S(V1)] COMPARED TO ECG 05/03/2022 23:18:58 NO SIGNIFICANT CHANGES Electronically Signed On 05-23-2022 8:33:18 OFFICE NURSE by Ashley Schneider M.D.
--- NOTE | 2022-05-22 20:12 | ED.GENADULT ---
HPI - General Adult General Chief complaint: Extremity Problem,Nontraumatic Stated complaint: feet and leg swelling Time Seen by Provider: 05/22/22 19:59 History of Present Illness HPI narrative: The patient is a 57-year-old woman with history of hypertension, anxiety, low back pain, and migraine headaches. She is status post hysterectomy and cholecystectomy. For the last week, the patient has had bilateral ankle and lower extremity swelling resulting in discomfort due to the tightness of her skin in those areas. She has been on her feet quite a bit recently painting a house. No previous similar history. No weight gain. No dyspnea. No cough. No chest discomfort or pressure. No nausea vomiting. Also with mild erythema of the lower extremities. This is also a new finding over the last week. She had not noticed that before this evening. No fevers or chills or diaphoresis. No other complaints. Related Data Home Medications Medication Instructions Recorded Confirmed metoprolol tartrate 50 mg PO DIRECTED 04/30/22 05/22/22 Allergies Allergy/AdvReac Type Severity Reaction Status Date / Time ketorolac Allergy Mild Rash Verified 05/22/22 19:37 Review of Systems Review of Systems: All systems reviewed & are unremarkable except as noted in HPI and below Constitutional: Constitutional: Reports no additional constitutional complaints, Denies anorexia, Denies body ache(s), Denies chills, Denies excessive sweating, Denies fatigue, Denies fever(s), Denies frequent falls, Denies headache(s), Denies malaise and Denies poor appetite Eyes: Eyes: Reports no additional eye complaints, Denies blurry vision, Denies change in vision, Denies irritation, Denies itchy eyes and Denies photophobia ENT: Reports system reviewed and no additional complaints, except as documented, Reports Normal hearing present, Denies change in voice, Denies dysphagia, Denies vertigo, Denies dizziness, Denies ear discharge, Denies headache(s), Denies hearing loss, Denies hoarseness, Denies nasal congestion, Denies neck pain, Denies sinus pressure, Denies sore throat and Denies throat swelling Cardiovascular: Cardiovascular: Reports no additional cardiovascular complaints, Denies chest pain, Denies syncope, Denies rapid heart rate, Denies irregular heart rhythm, Reports leg edema, Denies dyspnea and Denies slow heart rate Respiratory: Respiratory: Reports no additional respiratory complaints, Denies cough, Denies dyspnea, Denies stridor and Denies wheezing Gastrointestinal: Gastrointestinal: Reports no additional gastrointestinal complaints, Denies abdominal pain, Denies melena, Denies hematochezia, Denies dysphagia, Denies diarrhea, Denies nausea and Denies vomiting Genitourinary: Genitourinary: Denies hematuria, Denies urinary frequency, Denies dysuria, Denies flank pain and Denies urinary urgency Musculoskeletal: Musculoskeletal: Reports no additional musculoskeletal complaints, Denies abnormal gait, Denies back pain, Denies myalgias, Denies arthralgias, Denies joint swelling, Denies limited range of motion, Denies muscle cramps, Denies muscle weakness, Denies neck pain and Denies numbness Integumentary/Breasts: Skin/Breast: Reports system reviewed and no additional complaints, except as docu, Denies breast pain, Denies change in pigmentation, Denies pruritus, Denies erythema and Denies wounds Neurologic: Reports system reviewed and no additional complaints, except as documented, Reports Normal hearing present, Denies Abnormal speech present, Denies abnormal gait, Denies confusion, Denies vertigo, Denies dizziness, Denies syncope, Denies frequent falls, Denies headache(s), Denies focal weakness, Denies numbness and Denies paresthesias Psychiatric: Psychiatric: Reports no additional psychiatric complaints and Denies confusion Endocrine: Endocrine: Reports no additional endocrine complaints, Denies cold intolerance, Denies excessive sweating, Denies fatigue and Denies h
[2022-05-22 20:38] LABS: Basophils Absolute Auto 0.08 K/mm3 (0.00-0.10); Basophils Percent Auto 1.4 % (0.0-1.0); Eosinophils Absolute Auto 0.19 K/mm3 (0.02-0.50); Eosinophils Percent Auto 3.4 % (1.0-6.0); Hematocrit 34.2 % (35.0-49.0); Immature Granulocyte Absolute 0.02 K/mm3 (0.00-0.00); Immature Granulocyte Percent A 0.4 % (0.0-0.0); Lymphocytes Absolute Auto 1.99 K/mm3 (1.10-4.50); Lymphocytes Percent Auto 35.5 % (18.0-42.0); Mean Corpuscular HGB Conc 32.2 g/dL (32.0-36.0); Mean Corpuscular Hemoglobin 30.5 pg (27.0-31.0); Mean Corpuscular Volume 94.7 fL (78.0-102.0); Mean Platelet Volume 9.3 fl (9.2-11.8); Monocytes Absolute Auto 0.51 K/mm3 (0.10-0.90); Monocytes Percent Auto 9.1 % (2.0-11.0); Neutrophils Absolute Auto 2.8 K/mm3 (1.7-7.2); Neutrophils Percent Auto 50.2 % (50.0-70.0); Platelet Count Result 330 K/mm3 (150-420); Red Blood Count 3.61 M/mm3 (4.20-5.40); Red Cell Distribution Width 13.3 % (11.6-14.4); White Blood Count 5.6 K/mm3 (4.8-10.8)
[2022-05-22] MEDS: FUROSEMIDE 40 MG TABLET 80 MG PO (20:42)
[2022-05-22 20:54] LABS: D Dimer 1.26 mg/L (0.19-0.50)
[2022-05-22 21:02] LABS: Alanine Aminotransferase 11 U/L (14-59); Albumin Level 2.8 g/dL (3.4-5.0); Alkaline Phosphatase 76 U/L (46-116); Anion Gap 3 mmol/L (8-16); Aspartate Amino Transferase 13 U/L (15-37); Bilirubin,Total 0.2 mg/dL (0.00-1.00); Blood Urea Nitrogen 13 mg/dL (7-18); CRP < 0.5 mg/dL (0.0-0.9); Calcium 7.8 mg/dL (8.5-10.1); Carbon Dioxide 32 mmol/L (21-32); Chloride 105 mmol/L (98-108); Estimated CRCL calculation 47 ml/min; Estimated Glomerular Filt Rate > 60; Glucose 130 mg/dL (70-99); Magnesium 1.8 mg/dL (1.8-2.4); NT Pro B Type Natriuretic Pept 168 pg/mL (0-125); Osmolality Calculated 292 mOsm/kg (285-295); Potassium 3.6 mmol/L (3.5-5.1); Sodium 140 mmol/L (136-145); Total Protein 6.1 g/dL (6.4-8.2); Troponin I 7.4 ng/L (0.00-60.4)
[2022-05-22 21:40] LABS: Erythrocyte Sedimentation Rate 22 mm/hr (0-20)
[2022-05-22] MEDS: POTASSIUM BICARBONATE 25 MEQ TABEF 50 MEQ PO (21:42)
[2022-05-22 21:45] VITALS: BP 148/98; PULSE 79; RESP 18; O2SAT 95
== END 2022-05-22 22:00 | disposition home or self-care (01) ==
PROVIDERS: Emergency Provider Emergency Medicine
DX: R60.9 Edema, unspecified (principal); I10 Essential (primary) hypertension; F17.210 Nicotine dependence, cigarettes, uncomplicated; Z90.710 Acquired absence of both cervix and uterus; Z90.49 Acquired absence of other specified parts of digestive tract
CPT/HCPCS: 36415; 71046; 80053; 83735; 83880; 84484; 85025; 85380; 85652; 86140; 93005; 99284; A9270

== ENCOUNTER 2022-06-21 13:18 | Emergency (ER) | payer OTHER, SELFPAY ==
[2022-06-21 13:18] VITALS: BP 180/113; PULSE 100; RESP 16; TEMP 36.5; O2SAT 100
[2022-06-21 13:20] VITALS: BP 180/113; PULSE 100; RESP 20; TEMP 36.5; O2SAT 100
--- NOTE | 2022-06-21 13:25 | ED.FEMALEGU ---
HPI - Female Genitourinary General Chief complaint: [employer] Stated complaint: vaginal discharge; painful urination Time Seen by Provider: 06/21/22 13:25 Source: patient and RN notes reviewed Mode of arrival: ambulatory Limitations: no limitations History of Present Illness MD elicited complaint: possible STD Onset (ago): week(s) (2) Location of symptoms: vaginal Severity: moderate Vaginal discharge: yellow (green), purulent and vaginal odor Exacerbating factors: none Relieving factors: none Associated symptoms: painful and intercourse Treatment prior to arrival: none Sexual activity: Yes and Known STD Exposure Patient : No Related Data Allergies Allergy/AdvReac Type Severity Reaction Status Date / Time ketorolac [From Toradol] Allergy Nausea Verified 06/21/22 14:09 Review of Systems Review of Systems: All systems reviewed & are unremarkable except as noted in HPI and below PMFSH Past Medical History Medical History (Updated 06/21/22 @ 15:18 by Yvan De La Torre MD) OCD (obsessive compulsive disorder) Surgical History Surgical History (Updated 06/21/22 @ 13:42 by Yvan De La Torre MD) History of total abdominal hysterectomy Hx of cholecystectomy Social History Social History (Updated 06/21/22 @ 13:39 by Yvan De La Torre MD) Smoking status: Current some day smoker Tobacco type: cigarettes Exam Const: General: healthy appearing, no acute distress and alert Nutritional Appearance: well nourished Orientation/consciousness: patient oriented x3 Limitations: no limitations HENMT: Head: normal to inspection Ears: external ears normal Face/Nose/Sinus: Normal external nose present Face and sinus: normal facial exam Mouth: Yes moist mucous membranes Eyes: Conjunctivae: conjunctivae normal Pupils: Equal, round and reactive pupils present EOM: EOMs intact bilaterally Neck: Neck: normal visual inspection Resp: Effort & Inspection: normal respiratory effort Auscultation: clear to auscultation bilaterally Cardio: Rate: regular rate Rhythm: regular rhythm GI: GI Palp: Yes Soft to palpation and No Tenderness to palpation present (GI) Auscultation: normal bowel sounds : Speculum Exam - Vagina: normal appearance of the vagina and abnormal vaginal discharge white, malodorous and iverson Speculum Exam - Cervix: normal appearance of the cervix Bimanual exam- vagina & uterus: no cervical motion tenderness Bimanual Exam- Adnexa, other: no tenderness Back/Spine/Pelvis: Cervical Spine: cervical ROM normal Thoracic/Lumbar Spine: thoraco-lumbar ROM normal Skin: General skin exam: normal color Rashes: no rashes Neuro: General: patient oriented x3, moves all extremities, no focal motor deficits and CN's II-XI intact bilaterally Speech: normal speech Gait exam (Neuro): Normal gait present Extrem: General: normal to inspection and no clubbing, cyanosis or edema Psych: Appearance: grossly normal and well kempt Mental Status: mental status grossly normal Affect: normal affect Attitude: cooperative Course Vital Signs Vital signs: Vital Signs Temperature 36.5 C 06/21/22 13:18 Pulse Rate 100 06/21/22 13:18 Respiratory Rate 16 06/21/22 13:18 Blood Pressure 180/113 H 06/21/22 13:18 Pulse Oximetry 100 06/21/22 13:18 Oxygen Delivery Room Air 06/21/22 13:18 Temperature 36.9 C 06/21/22 15:43 Pulse Rate 87 06/21/22 15:43 Respiratory Rate 20 06/21/22 15:43 Blood Pressure 186/97 H 06/21/22 15:43 Pulse Oximetry 97 06/21/22 15:43 Oxygen Delivery Room Air 06/21/22 15:43 MDM - Female Genitourinary Lab Data Labs: Lab Results 06/21/22 06/21/22 Range/Units 13:31 13:43 Urine Color Light yellow (Yellow) Urine Appearance Slightly cloudy A (Clear) Urine pH 7.0 (5.0-8.0) Ur Specific [place] 1.015 (1.010-1.020) Urine Protein Negative (Negative) Urine Glucose (UA) Negative (Negative) Urine Ketones Negative (Negative) Ur Blood (Man)
[2022-06-21 14:35] VITALS: BP 184/108; PULSE 97; RESP 20; O2SAT 97
[2022-06-21 14:55] LABS: Bilirubin Urine Negative (Negative); Blood Urine Negative (Negative); Color Urine Light Yellow (Yellow); Glucose Urine UA Negative (Negative); Ketones Urine Negative (Negative); Leukocyte Esterase Ur Negative LEU/UL (Negative); Nitrate Urine Negative (Negative); Protein Urine Negative (Negative); Specific Grav Ur 1.015 (1.010-1.020); Urobilinogen Urine 0.2 mg/dL (0.2-1.0)
[2022-06-21 15:03] LABS: Add Urine Microscopic? NO; Appearance Urine Slightly Cloudy (Clear)
[2022-06-21] MEDS: cefTRIAXone 500 MG VIAL IM (15:27)
[2022-06-21] MEDS: LIDOCAINE HCL 1% LOCAL INJ 10 ML VIAL (15:27)
[2022-06-21] MEDS: AZITHROMYCIN 250 MG TABLET 1000 MG PO (15:28)
[2022-06-21] MEDS: metroNIDAZOLE 250 MG TABLET 500 MG PO (15:28)
[2022-06-21 15:43] VITALS: BP 186/97; PULSE 87; RESP 20; TEMP 36.9; O2SAT 97
--- NOTE | 2022-06-21 15:55 | PC.NURSE ---
1545 no reaction from injection , pt wanting to leave before observation period of 15 after injection.
--- NOTE | 2022-06-25 13:09 | PC.NURSE ---
cultures reviewed. no trachomatis or gonorrhoeae detected. no change in plan of care.
== END 2022-06-21 15:45 | disposition home or self-care (01) ==
PROVIDERS: Emergency Provider Emergency Medicine
DX: N76.0 Acute vaginitis (principal); B96.89 Other specified bacterial agents as the cause of diseases classified elsewhere; F17.200 Nicotine dependence, unspecified, uncomplicated
CPT/HCPCS: 81003; 87210; 87491; 87591; 96372; 99284; A9270; J0696

== ENCOUNTER 2022-08-19 21:07 | Emergency (ER) | payer OTHER, SELFPAY ==
[2022-08-19 21:08] VITALS: BP 149/86; PULSE 63; RESP 17; TEMP 37; O2SAT 100
[2022-08-19 21:22] VITALS: PULSE 65
--- NOTE | 2022-08-19 21:33 | ED.GENADULT ---
HPI - General Adult General Chief complaint: Seizure Stated complaint: SEIZURE-LIKE ACTIVITY Time Seen by Provider: 08/19/22 21:15 History of Present Illness HPI narrative: This is a 57-year-old female presenting ED with seizure-like activity. She was discharged from [facility] earlier today. Before she left the premises she has experienced generalized tonic clonic activity. Patient says she has a seizure every some couple months. Patient did not bite her tongue but she did have urinary incontinence. Patient does not take any medication for seizures. She does not have a neurologist. She denies any other complaints at this time. Related Data Home Medications Medication Instructions Recorded Confirmed metoprolol tartrate 50 mg PO DIRECTED 04/30/22 05/22/22 Allergies Allergy/AdvReac Type Severity Reaction Status Date / Time ketorolac Allergy Mild Rash Verified 08/19/22 21:20 [facility] Past Medical History Medical History Low back pain Migraine No significant medical problems Surgical History Surgical History History of cholecystectomy History of hysterectomy Family History Family History Mother Multiple myeloma Social History Social History Smoking status: Current every day smoker Tobacco type: cigarettes Additional smoking assessment comments: 1/2 Pack per day Gender identity (if verbalized by the patient): Female Exam Narrative: APPEARANCE: No apparent distress. Head: atraumatic. EYES: EOMI, NOSE: Atraumatic NECK: Trachea midline RESPIRATORY: No increased rate of breathing, CTAB CARDIOVASCULAR: RRR, ABDOMINAL: Non-distended MUSCULOSKELETAl: No obvious deformities NEURO: Alert. Cranial nerves 2-12 grossly intact. Sensation light touch, motor function cerebellar function intact for 4 extremities. Gait exam was normal. SKIN:: Warm, dry. Normal color PSYCHIATRIC: Normal affect Course Vital Signs Vital signs: Vital Signs Temperature 98.6 F 08/19/22 21:08 Pulse Rate 63 08/19/22 21:08 Respiratory Rate 17 08/19/22 21:08 Blood Pressure 149/86 H 08/19/22 21:08 Pulse Oximetry 100 08/19/22 21:08 Oxygen Delivery Room Air 08/19/22 21:08 Temperature 98.6 F 08/19/22 21:08 Pulse Rate 65 08/19/22 21:22 Respiratory Rate 17 08/19/22 21:08 Blood Pressure 149/86 H 08/19/22 21:08 Pulse Oximetry 100 08/19/22 21:08 Oxygen Delivery Room Air 08/19/22 21:08 Medical Decision Making MDM Narrative Medical decision making narrative: -Presentation: 57-year-old female presenting with seizure-like activity. Patient has a known diagnosis of seizures but not does take take any medications. at this time patient has normal mental status and has a known diagnosis of seizures. Basic lab work has been ordered. She will be monitored while her workup is completed and then discharged with urology follow-up if she does not have any more seizures. -DDX includes but is not limited to: seizure disorder, medication noncompliance, factitious disorder -Co-morbidities complicating care: seizure disorder -Social determinants of health: patient works in home health care, lives with roommates -External Chart Review: review of multiple ER notes from [facility] -Hx from independent Sources: EMS report -Independent interpretation of studies: CBC within normal limits. Metabolic panel showed hypokalemia to be repleted orally. Mag was normal Dx tests considered but not ordered: CT head- no trauma and patient has no diagnosis of seizures -Interventions: 1 L normal saline -Shared decision making / Disposition: patient was monitored for several hours and then inform staff that she would like to leave AMA. She has not had recurrence of her symptoms. She fe
[2022-08-19 21:45] LABS: Glucose Point of Care 102 mg/dl (65-105)
[2022-08-19] MEDS: SODIUM CHLORIDE 0.9% IV 1,000 ML 999 ML IV CONT (21:48)
[2022-08-19 21:59] LABS: Basophils Absolute Auto 0.1 K/mm3 (0.0-0.1); Basophils Percent Auto 1.1 % (0.2-1.2); Eosinophils Percent Auto 0.2 % (0-4.4); Hematocrit 45.5 % (37.0-47.0); Hemoglobin 14.8 g/dL (12.0-15.0); Immature Granulocyte Absolute 0.03 K/mm3 (0.00-0.031); Immature Granulocyte Percent A 0.3 % (0-0.5); Lymphocytes Absolute Auto 2.31 K/mm3 (0.9-3.2); Lymphocytes Percent Auto 25.8 % (18.3-44.2); Mean Corpuscular HGB Conc 32.5 g/dl (32-36); Mean Corpuscular Hemoglobin 29.4 pg (26-34); Mean Corpuscular Volume 90.3 fl (80-100); Mean Platelet Volume 9.9 fl (7.4-10.4); Monocytes Absolute Auto 0.7 K/mm3 (0.1-0.6); Neutrophils Absolute Auto 5.8 K/mm3 (1.3-6.7); Neutrophils Percent Auto 64.6 % (45.5-73.1); Platelet Count Result 326 k/mm3 (150-375); Red Blood Count 5.04 M/mm3 (4.2-5.4); Red Cell Distribution Width 13.5 % (11.5-14.5)
[2022-08-19 22:16] LABS: Anion Gap 6 mmol/L (8-16); Blood Urea Nitrogen 26 mg/dL (7-17); Calcium 8.2 mg/dL (8.4-10.2); Carbon Dioxide 29 mmol/L (22-30); Chloride 105 mmol/L (98-107); Estimated CRCL calculation 59 ml/min; Estimated Glomerular Filt Rate > 60; Glucose 98 mg/dL (65-110); Potassium 3.3 mmol/L (3.4-5.0); Sodium 140 mmol/L (137-145)
[2022-08-19 22:35] VITALS: BP 145/84; PULSE 68; RESP 14; O2SAT 97
== END 2022-08-19 22:37 | disposition home or self-care (01) ==
PROVIDERS: Emergency Provider Emergency Medicine
DX: R56.9 Unspecified convulsions (principal); Z90.49 Acquired absence of other specified parts of digestive tract; Z90.710 Acquired absence of both cervix and uterus; F17.210 Nicotine dependence, cigarettes, uncomplicated
CPT/HCPCS: 36415; 80048; 82948; 83735; 85025; 96360; 99283; J7030